=== PATIENT | female | born 1995 | race Caucasian/White ===

== ENCOUNTER → 2017-08-03 | Outpatient (REF) | LOC: WSOH 14:00 | DX: Z02.89 Encounter for other administrative examinations (principal) ==

== ENCOUNTER → 2019-01-23 | Outpatient (CLI) | payer OTHER | LOC: COL.RAD 13:28 | DX: N26.1 Atrophy of kidney (terminal) (principal); N28.89 Other specified disorders of kidney and ureter; M41.86 Other forms of scoliosis, lumbar region | CPT/HCPCS: Q9967 ==

== ENCOUNTER 2020-09-08 12:28 | Emergency (ER) | payer SELFPAY ==
[~2020-09-08] VITALS: Ht 160 cm; Wt 56.8 kg
[2020-09-08 12:38] VITALS: TEMP 98.7
[2020-09-08 14:06] VITALS: BP 122/70; PULSE 80
[2020-09-09] MEDS ORDERED: ZOFRAN 4MG T4 MG/TAB PO (20:18)
== END 2020-09-08 14:04 | disposition home or self-care (01) ==
LOC: COL.ER 12:28
DX: R07.89 Other chest pain (principal); Z88.1 Allergy status to other antibiotic agents

== ENCOUNTER 2020-09-09 18:45 | Emergency (ER) | payer SELFPAY ==
[~2020-09-09] VITALS: Ht 160 cm; Wt 56.8 kg
[2020-09-09] MEDS ORDERED: ZOFRAN 4MG T4 MG/TAB PO (20:18)
[2020-09-09 20:50] VITALS: BP 136/64; PULSE 78; TEMP 98.4
== END 2020-09-09 21:08 | disposition home or self-care (01) ==
LOC: COL.ER 18:45
DX: S06.0X9A Concussion with loss of consciousness of unspecified duration, initial encounter (principal); Z88.1 Allergy status to other antibiotic agents; V49.50XA Passenger injured in collision with unspecified motor vehicles in traffic accident, initial encounter
CPT/HCPCS: J1885

== ENCOUNTER → 2021-08-06 | Outpatient (CLI) | payer OTHER ==
[~2021-08-06] MED LIST: ZOFRAN 4MG T4 MG/TAB PO
== END ==
LOC: COL.RAD 12:48
DX: M25.512 Pain in left shoulder (principal)

== ENCOUNTER → 2021-10-12 | Outpatient (CLI) | payer OTHER | LOC: COL.RAD 07:46 | DX: M25.512 Pain in left shoulder (principal) | CPT/HCPCS: A9585; Q9967 ==